=== PATIENT | female | born 1965 | race African-American/Black ===

== ENCOUNTER 2019-08-17 21:59 | Emergency (ER) | payer MEDICAID, OTHER ==
[~2019-08-17] VITALS: Ht 165.1 cm; Wt 71.9 kg
[~2019-08-17 21:59] MED LIST: CARI350T28; DIAZ5TAB; [UNRECOGNIZED DRUG - CODE]
[2019-08-18] MEDS ORDERED: KETOROLAC 60MG/2ML VIAL IM ONE (01:45)
[2019-08-18] MEDS ORDERED: ACETAMINOPHEN 650MG/20.3ML UDC PO ONE (03:00)
[2019-08-18 03:35] VITALS: BP 158/99
== END 2019-08-18 03:38 | disposition home or self-care (01) ==
LOC: ER 21:59
DX: M25.561 Pain in right knee (principal); M25.562 Pain in left knee; J10.1 Influenza due to other identified influenza virus with other respiratory manifestations; F17.290 Nicotine dependence, other tobacco product, uncomplicated; I10 Essential (primary) hypertension; Z90.49 Acquired absence of other specified parts of digestive tract; Z79.899 Other long term (current) drug therapy
CPT/HCPCS: 96372; 99283; J1885